=== PATIENT | female | born 1960 ===

== ENCOUNTER 2024-04-08 10:02 | Inpatient (IN) | payer OTHER ==
[~2024-04-08] VITALS: Ht 154.9 cm; Wt 56.7 kg
[2024-04-08] MEDS ORDERED: SYNTHROID100 MCG PO (10:37)
[2024-04-08 10:38] VITALS: BP 165/70
[2024-04-08] MEDS ORDERED: SIMVASTATIN10 MG PO (10:38)
[2024-04-08] MEDS ORDERED: EVISTA60 MG PO (10:38)
[2024-04-13] MEDS ORDERED: ATORVASTATIN CA10 MG (09:01)
[2024-04-13] MEDS ORDERED: BUPIVACAINE HCL/PF 0.25% 30ML VIAL InF ONE (11:30)
[2024-04-13] MEDS ORDERED: METRONIDAZOLE/SODIUM CHLORIDE 500 MG/100 ML PIGGYBACK IV ONE (11:30)
[2024-04-13] MEDS ORDERED: levoFLOXacin IN DEXTROSE 5 % 5 MG/ML PIGGYBAG IV ONE (11:30)
[2024-04-13] MEDS ORDERED: LIDOCAINE HCL 1%/EPINEPHRINE 20ML VIAL IJ ONE (11:45)
[2024-04-13] MEDS ORDERED: MORPHINE SULFATE 4 MG/ML CARTRIDGE IV PRN (12:00)
[2024-04-13] MEDS ORDERED: DEXTROSE 50 % IN WATER 0.5 G/ML DISP.SYRIN IV PRN (12:00)
[2024-04-13] MEDS ORDERED: 0.9 % SODIUM CHLORIDE 1,000 ML IV SCH (12:00)
[2024-04-13] MEDS ORDERED: OxyCODONE HCL 5 MG TABLET (ROXICODONE) PO PRN (12:00)
[2024-04-13] MEDS ORDERED: ONDANSETRON HCL 2 MG/ML VIAL IV PRN (12:00)
[2024-04-13] MEDS ORDERED: HYOSCYAMINE SULFATE 0.125 MG TAB.SUBL SL SCH (13:00)
[2024-04-13 13:44] LABS: HEMOGLOBIN 12.5 g/dL (12.0-15.00); MEAN CELL VOLUME 93.6 fL (80.00-100.00); MEAN CORPUSCULAR HEMOGLOBIN 31.7 pg (27.00-32.0); MEAN CORPUSCULAR HGB CONC 33.9 g/dl (32.0-36.0); PLATELET COUNT 237 K/uL (150-450); RED BLOOD COUNT 3.95 M/uL (4.00-6.00); RED CELL DISTRIBUTION WIDTH 12.3 % (11.5-14.5)
[2024-04-13] MEDS ORDERED: ACETAMINOPHEN 500 MG GEL..CAP PO SCH (14:00)
[2024-04-13 14:38] LABS: ALBUMIN 3.2 gm/dL (3.4-5.0); CALCIUM 8.5 mg/dL (8.5-10.1); CREATININE SERUM 0.6 mg/dL (0.55-1.02); GFR 100.64; MAGNESIUM 1.9 mg/dL (1.8-2.4); PHOSPHOROUS 3.1 mg/dL (2.5-4.9); POTASSIUM 4.37 mEq/L (3.5-5.1)
[2024-04-13] MEDS ORDERED: POLYETHYLENE GLYCOL 3350 17 GM BLIST.PACK PO SCH (17:00)
[2024-04-13] MEDS ORDERED: GABAPENTIN 300 MG CAPSULE PO SCH (17:00)
[2024-04-13] MEDS ORDERED: METRONIDAZOLE/SODIUM CHLORIDE 500 MG/100 ML PIGGYBACK IV SCH (17:00)
[2024-04-13] MEDS ORDERED: ENALAPRILAT DIHYDRATE 1.25 MG/ML VIAL IV PRN (18:15)
[2024-04-13 20:10] VITALS: BP 167/70; O2SAT 99
[2024-04-13] MEDS ORDERED: FAMOTIDINE/PF 20 MG/2 ML VIAL IV PUSH SCH (21:00)
[2024-04-13] MEDS ORDERED: CELECOXIB 200 MG CAPSULE PO SCH (21:00)
[2024-04-14 00:54] VITALS: BP 122/61; O2SAT 98
[2024-04-14] MEDS ORDERED: SYNTHROID BRAND ONLY PO SCH (06:00)
[2024-04-14 06:25] LABS: HEMATOCRIT 35.5 % (36.0-45.00); HEMOGLOBIN 12.3 g/dL (12.0-15.00); MEAN CELL VOLUME 95.9 fL (80.00-100.00); MEAN CORPUSCULAR HEMOGLOBIN 33.2 pg (27.00-32.0); MEAN CORPUSCULAR HGB CONC 34.6 g/dl (32.0-36.0); PLATELET COUNT 222 K/uL (150-450); RED BLOOD COUNT 3.71 M/uL (4.00-6.00); RED CELL DISTRIBUTION WIDTH 11.8 % (11.5-14.5)
[2024-04-14 07:00] LABS: ALBUMIN 2.9 gm/dL (3.4-5.0); CALCIUM 8.7 mg/dL (8.5-10.1); CREATININE SERUM 0.58 mg/dL (0.55-1.02); GFR 104.66; PHOSPHOROUS 2.2 mg/dL (2.5-4.9); POTASSIUM 4.33 mEq/L (3.5-5.1)
[2024-04-14] MEDS ORDERED: HYOSCYAMINE0.125 M1 SL (07:36)
[2024-04-14] MEDS ORDERED: PEPCID AC20 MG PO (07:36)
[2024-04-14] MEDS ORDERED: TRAM1TAB98 PO (07:37)
[2024-04-14 08:00] VITALS: BP 160/72; O2SAT 98
[2024-04-14] MEDS ORDERED: NAPH,MB-DB/K PH,MBDB 1 PKT PACKET PO STA (10:08)
[2024-04-14 16:00] VITALS: BP 129/61; O2SAT 97
[2024-04-14] MEDS ORDERED: ATORVASTATIN CALCIUM 10 MG TABLET PO SCH (17:00)
[2024-04-14] MEDS ORDERED: ENOXAPARIN SODIUM 40 MG/0.4 ML SYRINGE SUBCUTANEO SCH (17:00)
[2024-04-15] MEDS ORDERED: PATIENTS OWN MEDICATION (MEDICAMENTO EN PISO) PO SCH (06:00)
[2024-04-15] MEDS ORDERED: ENOXAPARIN SODIUM 40 MG/0.4 ML SYRINGE SUBCUTANEO SCH (09:00)
== END 2024-04-14 16:14 | disposition home or self-care (01) | DRG 331 ==
LOC: SURH 04-13 05:15 → O/R 04-13 05:15 → SURH 04-13 07:00
PROVIDERS: ADMIT Surgery; ATTEND Surgery
PROC: 0DBH4ZZ Excision of Cecum, Percutaneous Endoscopic Approach (ICD-10-PCS; principal; 2024-04-13 07:00)
DX: D12.1 Benign neoplasm of appendix (principal); Z20.822 Contact with and (suspected) exposure to COVID-19